=== PATIENT | female | born 1995 | race American Indian/Alaskan Native ===

== ENCOUNTER 2020-03-30 18:28 | Emergency (ER) | payer MEDICAID ==
[2020-03-30 18:46] VITALS: BP 112/69
--- NOTE | 2020-03-30 21:46 | XRay Report ---
LUMBAR SPINE 2 VIEWS INDICATION / CLINICAL INFORMATION: fall and back pain. COMPARISON: None available. FINDINGS: VERTEBRAE: No acute fracture. No significant malalignment. DISC SPACES / FACET JOINTS:No significant abnormality. PARASPINAL SOFT TISSUES:No significant abnormality. ADDITIONAL FINDINGS: None. Signer Name: Carmelo Hopkins MD Signed: 03/30/2020 9:42 PM Workstation Name: [id number]
--- NOTE | 2020-03-30 23:33 | Emergency Department Report ---
ED Back Pain/Injury HPI - General Chief Complaint: Back Pain/Injury Stated Complaint: SPINAL INJURY Time Seen by Provider: 03/30/20 20:13 Source: patient Limitations: No Limitations - History of Present Illness Initial Comments: 25-year-old -[place] female presents to the emergency department pain to her lower back and reports having a pre-existing injury and pain to her back. No numbness or tingling but dull throbbing pain that sometimes shoots down her right leg and a burning fashion. This was re-exacerbated after a recent fall landing on her back yesterday and the pain is been progressively worsening since. She reports no loss of bowel or bladder no saddle paresthesia. MD Complaint: back pain Similar Symptoms Previously: Yes Place: home Radiation: right leg Severity: moderate, severe Quality: sharp Consistency: constant Improves With: movement Worsens With: movement Context: fall Associated Symptoms: denies: weakness, chest pain, numbness, difficulty walking, cough, diaphoresis, incontinence, fever/chills, constipation, headaches, nausea/vomiting, rash, seizure, shortness of breath - Related Data Previous Rx's Medication Instructions Recorded Last Taken Type Ketorolac [Toradol] 10 mg PO Q6H PRN #14 tablet 03/30/20 Unknown Rx methOCARBAMOL [Robaxin TAB] 500 mg PO Q6H PRN #20 tablet 03/30/20 Unknown Rx Allergies Allergy/AdvReac Type Severity Reaction Status Date / Time No Known Allergies Allergy Verified 04/13/15 20:08 ED Review of Systems ROS: Stated complaint: SPINAL INJURY Other details as noted in HPI Comment: All other systems reviewed and negative ED Past Medical Hx - Past Medical History Previous Medical History?: Yes Additional medical history: chronic back pain/injury - Social History Smoking Status: Never Smoker Substance Use Type: None - Medications Home Medications: Home Medications Medication Instructions Recorded Confirmed Last Taken Type Ketorolac [Toradol] 10 mg PO Q6H PRN #14 tablet 03/30/20 Unknown Rx methOCARBAMOL [Robaxin TAB] 500 mg PO Q6H PRN #20 tablet 03/30/20 Unknown Rx ED Physical Exam - General Limitations: No Limitations General appearance: alert, in no apparent distress - Head Head exam: Present: atraumatic, normocephalic - Eye Eye exam: Present: normal appearance, PERRL, EOMI - ENT ENT exam: Present: mucous membranes moist - Neck Neck exam: Present: normal inspection - Respiratory Respiratory exam: Present: normal lung sounds bilaterally. Absent: respiratory distress - Cardiovascular Cardiovascular Exam: Present: regular rate, normal rhythm. Absent: systolic murmur, diastolic murmur, rubs, gallop - GI/Abdominal GI/Abdominal exam: Present: soft, normal bowel sounds - Extremities Exam Extremities exam: Present: normal inspection - Back Exam Back exam: Present: normal inspection, tenderness, paraspinal tenderness, vertebral tenderness. Absent: CVA tenderness (R), CVA tenderness (L) - Neurological Exam Neurological exam: Present: alert, oriented X3, CN II-XII intact, normal gait, motor sensory deficit - Psychiatric Psychiatric exam: Present: normal affect, normal mood - Skin Skin exam: Present: warm, dry, intact, normal color. Absent: rash ED Course Vital Signs 03/30/20 18:44 Temperature 98 F Pulse Rate 91 H Respiratory 16 Rate Blood Pressure 112/69 [Right] O2 Sat by Pulse 100 Oximetry ED Medical Decision Making - Radiology Data Radiology results: report reviewed [facility] [address] [place] [address] XRay Report Signed Patient: MARIAELENA LATIF MR#: [id number] : 1995 Acct:[id number] Age/Sex: 25 / F ADM Date: 03/30/20 Loc: ED Attending Dr: Ordering Physician: ANURADHA CANTRELL Date of Service: 03/30/20 Procedure(s): XR spine lumbosacral 2-3V Accession Number(s): [id number] cc: ANURADHA CANTRELL Fluoro Time In Minutes: LUMBAR SPINE 2 VIEWS INDICATION / CLINICAL INFORMATION: fall and back pain. COMPARISON: None available. FINDINGS: VERTEBRAE: No acute fracture. No significant malalignment. DISC SPACES / FACET JOINTS:No significant abnormality. PARASPINAL SOFT TISSUES:No significant abnormality. ADDITIONAL FINDINGS: None. Signer Name: Carmelo Hopkins MD Signed: 03/30/2020 9:42 PM Workstation Name: [id number] Transcribed By: RH Dictated By: CARMELO HOPKINS III Electronically Authenticated By: CARMELO HOPKINS III Signed Date/Time: 03/30/202141 DD/ 40 TD/TT: - Medical Decision Making Pt presents the emergency department complaining of back pain most consistent with lumbago with radiculopathy back Pain Most Consistent with Strain/Contusion. Differential Diagnosis Includes Lumbar Go Versus Musculoskeletal Spasm, Strain Versus Sciatica. No Back Pain Red Flags on History or Physical. Presentation Not Consistent with Malignancy, Fracture, Cauda Equina, Abdominal Aortic Aneurysm, Viscus Perforation, Pulmonary Embolism, Renal Colic, Pyelonephritis. Patient reports no B symptoms, trauma trauma, incontinence, saddle anesthesia, distal weakness, urinary symptoms and is a febrile. Critical care attestation.: If time is entered above; I have spent that time in minutes in the direct care of this critically ill patient, excluding procedure time. ED Disposition Clinical Impression: Lumbar radiculopathy, right, Lumbago Disposition: TO HOME OR SELFCARE Is pt being admited?: No Does the pt Need Aspirin: No Condition: Stable Instructions: Acute Low Back Pain (ED), Lumbar Radiculopathy (ED), Chronic Back Pain (ED) Prescriptions: methOCARBAMOL [Robaxin TAB] 500 mg PO Q6H PRN #20 tablet PRN Reason: back spasm Ketorolac [Toradol] 10 mg PO Q6H PRN #14 tablet PRN Reason: Pain Referrals: PRIMARY CARE, [Primary Care Provider] - 3-5 Days CARMELO DECKER MD [Staff Physician] - 3-5 Days
== END 2020-03-30 23:45 | disposition home or self-care (01) ==
LOC: ED 18:28
DX: M54.16 Radiculopathy, lumbar region (principal); M54.5 Low back pain; Z79.899 Other long term (current) drug therapy
CPT/HCPCS: 72100